=== PATIENT | male | born 1955 | race Caucasian/White ===

== ENCOUNTER 2017-01-06 10:20 | Emergency (ER) | payer OTHER ==
[~2017-01-06] VITALS: Ht 177.8 cm; Wt 106.6 kg
--- NOTE | 2017-01-06 11:06 | ED HAND/WRIST INJURY COMPLAINT ---
History of Present Illness General Chief Complaint: Animal/Insect Bite Stated Complaint: DOG BITE Source: patient Exam Limitations: no limitations Vital Signs & Intake/Output Vital Signs & Intake/Output Vital Signs Date Time Temp Pulse Resp B/P Pulse O2 O2 Flow FiO2 Ox Delivery Rate 01/06 1200 146/88 01/06 1034 98.4 73 18 157/94 100 Room Air Allergies Uncoded Allergies: PCN (Severe, ANAPHYLAXSIS 01/06/17) Allergy Other N Med Allergies PCN Reconcile Medications Amoxicillin/Potassium Clav (Augmentin 875-125 Tablet) 875 MG-125 MG TABLET 1 TAB PO BID dog bite prophylaxis Triage Note: BIT BY DOG THIS AM, (R THUMB AND MIDDLE FINGER). DSG IN PLACE ON ARRIVAL. LAST TETANUS 2 YEARS AGO. Triage Nurses Notes Reviewed? yes HPI: Patient is a 61-year-old male resents complaining of lacerations to his right thumb and right middle finger status post dog bite. Patient works as a regional sales trainer reports that he was working with a dog when the dog bit him. Injury occurred at approximately 8:30 AM. Pain is 1 out of 10. Dog is up-to-date on its rabies vaccinations. Patient reports his last tetanus immunization was approximately 2 years ago. Patient has a penicillin allergy but reports he has been on Augmentin numerous times without adverse reaction. Patient denies numbness, weakness, decreased range of motion. (GRACIE PEREIRA) Past History Travel History Traveled to [place] past 21 day No Medical History Any Pertinent Medical History? see below for history Cardiovascular: hypertension Respiratory: asthma Surgical History Surgical History: non-contributory Psychosocial History What is your primary language Guamanian Tobacco Use: Never used ETOH Use: denies use Family History Hx Contributory? No (GRACIE PEREIRA) Review of Systems Review of Systems Constitutional: Reports: no symptoms. Musculoskeletal: Reports: see HPI. Skin: Reports: see HPI. Neurological/Psychological: Denies: numbness, paresthesia. Hematologic/Endocrine: Reports: bleeding (from wounds, resolved). Immunologic/Allergic: Denies: splenectomy. (GRACIE PEREIRA) Physical Exam Physical Exam General Appearance: well developed/nourished, alert, awake Head: atraumatic, normal appearance Eyes: Bilateral: normal appearance. Neck: normal inspection, full range of motion Cardiovascular/Respiratory: no respiratory distress Back: normal inspection, normal range of motion Hand Left: normal inspection, normal range of motion Hand Right: 1 cm superficial laceration to the thumb over the proximal phalanx. 3 cm flap laceration to the dorsal surface of the third finger over the proximal phalanx. Nontender, full range of motion, no visible or functional tendon deficits. Neurologic/Tendon: normal sensation, normal motor functions, normal tendon functions Diagram Hands Front 1) laceration Hands Back 1) laceration (GRACIE PEREIRA) Progress Differential Diagnosis: laceration, tendon laceration, foreign body, fracture Plan of Care: Given mechanism of injury and increase in infection risk, sutures deferred. Copiously irrigated with sterile saline by nurse. steri-strips placed. finger splint to right middle finger placed. (GRACIE PEREIRA) Departure Departure Disposition: HOME OR SELF CARE Condition: Stable Clinical Impression Primary Impression: Dog bite, hand Qualifiers: Encounter type: initial encounter Laterality: right Qualified Codes : S61.451A - Open bite of right hand, initial encounter; W54.0XXA - Bitten by dog, initial encounter Referrals: TEREAS LANCASTER,MACY MICHEL MD,CELSA Garcia (PCP/Family) Additional Instructions: Follow up with Dr. Corea(hand specialist) within 1 week for recheck and further evaluation of your wounds. Call today for appointment. Wear finger splint to the middle finger for support and to aid with healing. Change the dressings daily. Steri-Strips will fall off on their own. Return to the ER if pus from the wound, redness spreading from the wound, fevers, or worsening of symptoms. Departure Forms: Customer Survey General Discharge Information Prescriptions: Current Visit Scripts Amoxicillin/Potassium Clav (Augmentin 875-125 Tablet) 1 TAB PO BID #14 TAB (GRACIE PEREIRA) PA/AUTO CLAIM REPRESENTATIVE Co-Sign Statement Statement: ED Attending supervision documentation- x I saw and evaluated the patient. I have also reviewed all the pertinent lab results and diagnostic results. I agree with the findings and the plan of care as documented in the PA's/AUTO CLAIM REPRESENTATIVE's documentation. [] I have reviewed the ED Record and agree with the PA's/AUTO CLAIM REPRESENTATIVE's documentation. [] Additions or exceptions (if any) to the PAs/AUTO CLAIM REPRESENTATIVE's note and plan are summarized below: [] (DENNIS LANCASTER,PATRIZIA)
[2017-01-06] MEDS ORDERED: AUGMENTIN 875-1 EACH PO (11:39)
[2017-01-06 12:00] VITALS: BP 146/88
== END 2017-01-06 12:05 ==
LOC: ERH 10:20
DX: S61.252A Open bite of right middle finger without damage to nail, initial encounter (principal); S61.051A Open bite of right thumb without damage to nail, initial encounter; W54.0XXA Bitten by dog, initial encounter